=== PATIENT | female | born 1995 | race Caucasian/White ===

== ENCOUNTER → 2017-02-07 | Outpatient (CLI) | payer BC ==
--- NOTE | 2017-02-07 16:45 | RAD ---
Right upper quadrant abdominal ultrasound, 02/07/2017: History: Pain The gallbladder is within normal limits in size. There is echogenic material within the gallbladder. In the fundal region there is posterior acoustic shadowing compatible with a calculus. In other areas this appears to represent sludge. The gallbladder wall is at the upper limits of normal in thickness. No bile duct dilatation is seen. The visualized portions of the liver, pancreas and right kidney are unremarkable. IMPRESSION: Sludge and calculi in the gallbladder.
== END | disposition home or self-care (01) ==
LOC: US 16:02
PROVIDERS: ATTEND Nurse Practitioner Family
DX: K80.20 Calculus of gallbladder without cholecystitis without obstruction (principal); R10.11 Right upper quadrant pain
CPT/HCPCS: 76705

== ENCOUNTER → 2019-02-08 | Outpatient (CLI) | payer BC ==
[2019-02-08 13:57] LABS: CALCIUM 8.9 mg/dL (8.5-10.1); CREATININE 0.8 mg/dL (0.6-1.0); GFR 87.4; MAGNESIUM 1.9 mg/dL (1.8-2.4); POTASSIUM 3.5 mmol/L (3.5-5.1)
== END | disposition home or self-care (01) ==
LOC: LAB 12:46
PROVIDERS: ATTEND Nurse Practitioner
DX: R00.2 Palpitations (principal)
CPT/HCPCS: 36415; 80048; 83735; 84443

== ENCOUNTER → 2019-04-02 | Outpatient (CLI) | payer BC ==
[2019-04-02 18:06] LABS: HEMOGLOBIN A1C 4.9 % (4.8-5.6)
[2019-04-02 20:54] LABS: THYROID STIM HORMONE (TSH) 1.309 uIU/mL (0.358-3.740)
== END | disposition home or self-care (01) ==
LOC: LAB 09:50
PROVIDERS: ATTEND Internal Medicine Cardiovascular Disease
DX: R07.9 Chest pain, unspecified (principal); R00.2 Palpitations
CPT/HCPCS: 36415; 83036; 84439; 84443